=== PATIENT | female | born 1990 | race Caucasian/White ===

== ENCOUNTER 2023-07-06 11:41 | Outpatient (REF) | payer MEDICAID, OTHER, SELFPAY ==
[2023-07-06 13:14] LABS: MANUAL DIFF FLAG NO
[2023-07-06 13:32] LABS: Basophils Percent Auto 0.7 % (0-2); Eosinophils Absolute Auto 0.1 X10*3/uL (0.0-0.4); Eosinophils Percent Auto 2.5 % (0-4); Hematocrit 38.4 % (37.0-47.0); Hemoglobin 12.5 g/dl (12.0-16.0); Imm Gran Abs Auto 0.02 X10*3/uL (0.00-0.03); Imm Gran Pct Auto 0.5 % (0.0-0.4); Lymphocytes Absolute Auto 1.3 X10*3/uL (1.2-4.9); Lymphocytes Percent Auto 29.7 % (20-40); Mean Corpuscular HGB Conc 32.6 g/dl (31.0-35.0); Mean Corpuscular Hemoglobin 29.2 pg (27.0-33.0); Mean Corpuscular Volume 89.7 fL (80.0-98.0); Mean Platelet Volume 9.6 fL (9.4-12.3); Monocytes Absolute Auto 0.3 X10*3/uL (0.1-1.2); Monocytes Percent Auto 7.8 % (2-11); Neutrophils Absolute Auto 2.6 x10*3/uL (2.0-8.3); Neutrophils Percent Auto 58.8 % (45-73); Platelet Count 252 X10*3/uL (160-400); Red Blood Count 4.28 X10*6/uL (4.20-5.50); Red Cell Distribution Width 13.6 % (11.0-16.0); White Blood Count 4.3 X10*3/uL (4.8-10.8)
[2023-07-06 13:46] LABS: Estimated Average Glucose 100 mg/dL; Hemoglobin A1c % 5.1 % (<6.0)
[2023-07-06 13:50] LABS: Alanine Aminotransferase 11 U/L (0-31); Alkaline Phosphatase 68 U/L (39-117); Anion Gap 10 (12-20); Aspartate Amino Transferase 21 U/L (5-31); Bilirubin Total 0.6 mg/dL (0.0-1.0); Blood Urea Nitrogen 12 mg/dL (9-16); Calcium 8.9 mg/dL (8.4-10.2); Carbon Dioxide 24 mmol/L (22-29); Chloride 108 mmol/L (96-108); Cholesterol 145 mg/dL (<200); Estimated Glomerular Filt Rate > 60; Glucose Random 78 mg/dL (60-115); HDL Cholesterol 59 mg/dL (>40); LDL Cholesterol Calculated 81 mg/dL (<100); Sodium 138 mmol/L (135-145); Total Protein 7.2 g/dL (6.5-8.0); Triglycerides 28 mg/dL (<150)
[2023-07-06 13:55] LABS: Syphilis Screen Nonreactive (Nonreactive)
[2023-07-06 14:08] LABS: TSH reflex Free T4 0.82 uIU/mL (0.32-4.0)
[2023-07-06 15:29] LABS: CT PCR NOT DETECTED (Not Detect.); NG PCR NOT DETECTED (Not Detect.)
[2023-07-07 04:05] LABS: HBS Num1 0.17 mIU/mL (0-7.99); HBc Num1 0.16 S/CO (0.00-0.79); HIV AB/AG Nonreactive (Nonreactive); HIV Num 1 0.05 S/CO (0.00-0.99); Hepatitis B Core Antibody Nonreactive (Nonreactive); Hepatitis B Surface Antigen Negative (Negative); ~Hepatitis B Surface Antibody NONREACTIVE (Nonreactive)
[2023-07-07 04:15] LABS: ~HepC Num1 0.15 S/CO (0.00-0.79); ~Hepatitis C Antibody Nonreactive (Nonreactive)
[2023-07-14 05:34] LABS: HPV 16 RNA NOT DETECTED (NOT DETECTED); HPV mRNA E6/E7 rflx Detected (Not Detected)
== END 2023-07-06 11:42 | disposition home or self-care (01) ==
LOC: HO.HHCL 11:41
PROVIDERS: Visit Provider Student in an Organized Health Care Education/Training Program
DX: Z00.00 Encounter for general adult medical examination without abnormal findings (principal); Z12.4 Encounter for screening for malignant neoplasm of cervix; Z11.51 Encounter for screening for human papillomavirus (HPV); Z11.4 Encounter for screening for human immunodeficiency virus [HIV]; Z11.3 Encounter for screening for infections with a predominantly sexual mode of transmission; N60.01 Solitary cyst of right breast
CPT/HCPCS: 0353U; 80053; 80061; 83036; 84443; 85025; 86704; 86706; 86780; 86803; 87340; 87389; 87624; 87625; 88142

== ENCOUNTER 2024-06-28 16:54 | Outpatient (REF) | payer MEDICAID, OTHER, SELFPAY ==
[2024-06-29 23:54] LABS: C. trachomatis RNA TMA NOT DETECTED (NOT DETECTED); N. gonorrhoeae RNA TMA NOT DETECTED (NOT DETECTED); Trichomonas (NAAT) NOT DETECTED (NOT DETECTED)
[2024-07-13 13:12] LABS: Clinical Information NONE GIVEN; Previous Biopsy Date NONE GIVEN; Thin Prep Source CERVIX
[2024-07-13 13:15] LABS: HPV mRNA E6/E7 Not Detected
== END 2024-06-28 16:55 | disposition home or self-care (01) ==
LOC: HO.HHCLNP 16:54
PROVIDERS: Visit Provider Advanced Practice Midwife
DX: R30.0 Dysuria (principal); N93.9 Abnormal uterine and vaginal bleeding, unspecified; Z11.3 Encounter for screening for infections with a predominantly sexual mode of transmission; R82.79 Other abnormal findings on microbiological examination of urine; R87.810 Cervical high risk human papillomavirus (HPV) DNA test positive
CPT/HCPCS: 36415; 87086; 87088; 87186; 87491; 87591; 87624; 87661; 88175

== ENCOUNTER 2024-11-04 09:42 | Outpatient (REF) | payer MEDICAID, SELFPAY ==
--- NOTE | ~2024-11-04 | US_ITS ---
EXAMINATION: MM DIAGNOSTIC DIGITAL BREAST TOMOSYNTHESIS, BILATERAL Alignment Limited right breast ultrasound. CLINICAL INFORMATION: Right breast palpable lump upper outer quadrant. Right medial breast pain. COMPARISON: Mammography: Baseline. TECHNIQUE: Digital breast mammography with tomosynthesis is performed in both the craniocaudal and mediolateral oblique views along with computer-aided detection (CAD). Limited right breast ultrasound. FINDINGS: The breasts are heterogeneously dense, which may obscure small masses (ACR BI-RADS breast composition Category c). BB marker in the upper outer breast without underlying abnormality. There are no significant masses, abnormal calcifications, or other abnormalities. Targeted color Doppler ultrasound in the area of the palpable lump at 11:00 demonstrates a hypoechoic oval circumscribed solid mass measuring 15 x 7 x 17 mm with morphology consistent with a fibroadenoma. No other sonographic abnormality. Targeted ultrasound in the medial right breast area of patient's pain from 7-12 o'clock demonstrates normal fibronodular breast tissue. Results are provided to the patient at time of visit by the technologist. US/US breast RT limited mamm only IMPRESSION: Hypoechoic solid mass at 11:00 on ultrasound. Recommend 6 month follow-up ultrasound for further evaluation of stability. No mammographic or sonographic abnormality to account for the patient's medial right breast pain. Recommend clinical evaluation and follow-up. ASSESSMENT: BI-RADS BI-RADS 3 - Probably benign finding(s) - 6 month follow-up suggested RECOMMENDATION: 6 Month F/U This patient's information was entered into a reminder system with a target due date for their next mammogram. Electronically signed by: Janice Nick DO 11/04/2024 10:55 AM LUNA
== END 2024-11-04 09:43 | disposition home or self-care (01) ==
LOC: HO.MAMMO 09:42
PROVIDERS: PCP Student in an Organized Health Care Education/Training Program; Visit Provider Advanced Practice Midwife
DX: N63.11 Unspecified lump in the right breast, upper outer quadrant (principal); R92.333 Mammographic heterogeneous density, bilateral breasts
CPT/HCPCS: 76642; 77062; 77066

== ENCOUNTER → 2024-11-04 09:45 | Outpatient (BNV) | payer MEDICAID, SELFPAY | PROVIDERS: PCP Student in an Organized Health Care Education/Training Program; Visit Provider Internal Medicine | DX: D24.1 Benign neoplasm of right breast (principal); R92.333 Mammographic heterogeneous density, bilateral breasts | CPT/HCPCS: 76642; 77062; 77066 ==

== ENCOUNTER → 2025-05-09 13:00 | Outpatient (BNV) | payer OTHER, SELFPAY | PROVIDERS: PCP Student in an Organized Health Care Education/Training Program; Visit Provider Internal Medicine | DX: N63.11 Unspecified lump in the right breast, upper outer quadrant (principal) | CPT/HCPCS: 76642 ==

== ENCOUNTER 2025-05-09 13:01 | Outpatient (REF) | payer OTHER, SELFPAY ==
--- NOTE | ~2025-05-09 | US_ITS ---
EXAMINATION: US DIAGNOSTIC ULTRASOUND BREAST, RIGHT CLINICAL INFORMATION: X month follow-up for hypoechoic oval circumscribed solid mass at 11:00 2 cm from the nipple in the right breast.. COMPARISON: Comparison is made with relevant prior imaging. TECHNIQUE: Ultrasound of the breast is performed with real-time velazquez scale imaging and color Doppler. FINDINGS: Targeted color Doppler ultrasound demonstrates at 11:00 2 cm from the nipple a hypoechoic oval circumscribed parallel solid mass measuring 16 x 8 x 15 mm not significantly changed in size or morphology from prior ultrasound 6 months ago previously measuring 17 x 15 x 7 mm. Results are discussed with the patient at time of visit. US/US breast RT limited mamm only IMPRESSION: Hypoechoic oval circumscribed solid mass at 11:00 2 cm from the nipple in the right breast. 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 This mass is amenable to ultrasound guided core needle biopsy if clinically indicated. This is probably benign and six-month follow-up ultrasound is recommended for further evaluation of stability. ASSESSMENT: BI-RADS 3: Probably Benign RECOMMENDATION: Diagnostic mammography in 6 months. This patient's information was entered into a reminder system with a target due date for their next mammogram. Electronically signed by: Janice Nick DO 05/09/2025 01:44 PM EDT
--- OUTSIDE RECORDS SUMMARY | 2025-05-09 14:18 | XMS_ITS | Clinical Summary ---
Author Organization [employer] Address [address] [place] [address] [address] [place] [address] Care Team Providers Care Java User Interface Developer Name Role Phone Kathy Edwards MD Primary Care Pro vider Allergies No known active allergies Medications Multiple Vitamin (multivitamin) tablet Take 1 tablet by mouth in the morning. Active Active Problems Problem Noted Date Diagnosed Date Health care maintenance 06/23/2023 Overweight 06/23/2023 Breast mass, right 06/23/2023 Encounters Date Type Department Care Team Description 05/09/2025 Orders Only [facility] [address], [place] [phone] Kathy Edwards MD 04/10/2025 Telephone [facility] [address], [place] [phone] Ashley Aguilar CNM June Recall 04/10/2025 Telephone [facility] [address], [place] [phone] Kathy Edwards MD recall from Last 3 Months Immunizations Immunization Administration Dates Next Due HPV 9-Valent 08/05/2023,07/06/2023 Hep B, adult 07/28/2023 Influenza injectable quadriv alent preservative free 07/28/2023,12/14/2018,07/26/2017 Tdap 12/14/2018,05/14/2017 Family History Medical History Relation Name Comments HTN Maternal Grandfather Relation Name Status Comments Maternal Grandfather Social History Tobacco Use Types Packs/Day Years Used Date Smoking Tobacco: Never Passive Smoke Exposure: Never Smokeless Tobacco: Never Tobacco Cessation:Counseling Given: Not Answered Alcohol Use Standard Drinks/Week Comments Never 0 (1 standard drink = 0.6 oz pur e alcohol) Depression Answer Date Recorded Patient Health Questionnaire-9 Score 0 06/22/2023 Housing Stability Answer Date Recorded What is your housing situation today? I have zacarias rios 08/12/[address] you li ve. Do you have problems with any of the following? None of the above 08/12/2023 Food Insecurity Answer Date Recorded Within the past 12 months, y ou worried that your food would run out before you got money to buy more: Never True 08/12/2023 Within the past 12 months,th e food you bought just didn't last and you didn't have enough money to get more: Never True Transportation Answer Date Recorded In the past 12 months, has l ack of transportation kept you from medical appts, meetings, work or from getting things needed for daily living? No 08/12/2023 Utilities Answer Date Recorded In the past 12 months, has t he electric, gas, oil or water company threatened to shut off services in your home? No 08/12/2023 Depression Answer Date Recorded Patient Health Questionnaire-2 Score 0 06/22/2023 Comments No Sex and Gender Information Value Date Recorded Sex Assigned at Female 08/25/2022 10:31 AM EDT Legal Sex Female 10:31 AM EDT Gender Identity Female 08/25/2022 10:31 AM EDT Sexual Orientation Straight 06/22/2023 1: 52 PM EDT Last Filed Vital Signs Vital Sign Reading Time Taken Comments Blood Pressure 126/72 06/28/2024 10:11 AM EDT Pulse 100 06/28/2024 10:11 AM EDT Temperature 36.9 C (98.5 F) 06/28/2024 10:11 AM EDT Respiratory Rate 20 06/28/2024 10:11 AM EDT Oxygen Saturation 99% 08/05/2023 9:16 AM EDT Inhaled Oxygen Concentration - - Weight 75.4 kg (166 lb 2 oz) 06/28/2024 10:11 AM EDT Height 165.1 cm (5' 5 ) 06/28/2024 10:11 AM EDT Body Mass Index 27.64 06/28/2024 10:11 AM EDT Plan of Treatment Health Maintenance Due Date Last Done Comments Disability Screening 1990 Alcohol/Substance Use Screening 2004 Hepatitis B Vaccines (2 of 3 - 19+ 3-dose series) 08/25/2023 07/28/2023 HPV Vaccines (3 - 3-dose series) 01/04/2024 08/05/2023, 07/06/2023 Depression Screening 06/22/2024 06/22/2023, 06/22/2023 SDOH Screening 06/22/2024 06/22/2023 COVID-19 Vaccine (1 - 2023-2 5 season) 2024 Diagnostic Breast Imaging 05/04/20252024, 11/04/2024, 11/04/2024 Influenza Vaccine (#1) 2025 , 12/14/2018, 07/26/2017 Cervical Cancer Screening 06/28/2025 Family Planning (PISQ) 06/28/2025 06/28/2024 HPV/Cotest 06/28/2025 06/28/2024, 07/06/2023 Pap Smear 06/28/2025 06/28/2024, 07/06/2023 Tobacco Screening 06/28/2025 06/28/2024 DTaP/Tdap/Td Vaccines (3 - T d or Tdap) 12/14/2028 12/14/2018, 05/14/2017 Zoster Vaccines (1 of 2) 01/02/2042 RSV Patients and Patients Aged 60 years or older (1 - 1-dose 75+ series) 01/02/2067 HIV Screening Completed 07/06/2023 Hepatitis C Screening Completed 07/06/2023 HIB Vaccines Aged Out No longer eligi ble based on patient's age to complete this topic Hepatitis A Vaccines Aged Out No long er eligible based on patient's age to complete this topic IPV Vaccines Aged Out No longer eligi ble based on patient's age to complete this topic Meningococcal B Vaccine Aged Out No l onger eligible based on patient's age to complete this topic Meningococcal Vaccine Aged Out No gatito dylan eligible based on patient's age to complete this topic Pneumococcal Vaccine: Pediatrics (0 to 5 Years) and At-Risk Patients (6 to 49) Years Aged Out No longer eligible b ased on patient's age to complete this topic RSV under 20 months Aged Out No longe r eligible based on patient's age to complete this topic Rotavirus Vaccines Aged Out No longer eligible based on patient's age to complete this topic Procedures Procedure Name Priority Date/Time Associated Diagnosis Comments BI US BREAST LIMITED RIGHT Routine 05/09/2025 1:10 PM EDT THINPREP IMAGING PAP AND HPV MRNA E6/E7 Routine 06/28/2024 10:27 AM EDT Breast cyst, right HEPATITIS C AB W/REFL TO HCV RNA, QN, PCR Routine 07/06/2023 11:49 AM EDT Health care maintenance HIV ANTIBODY/ANTIGEN ([place] D[facility]) Routine 07/06/2023 11:49 AM EDT Breast cyst, right from Last 3 Months or Most Recently Relevant to Health Maintenance Results * BI US Breast Limited Right (05/09/2025 1:10 PM EDT) Anatomical Region Laterality Modality Breast Right Ultrasound 05/09/2025 1:10 PM EDT Narrative 05/09/2025 1:47 PM EDT [facility] [address] [place] [address] Ultrasound Report Signed Patient: Deshawn Escobar MR#: [id number] 4 : 1990 Acct:[id number] Age/Sex: 35 / F ADM Date: 05/09/25 Loc: HO.MAMMO Attending Dr: Kathy Alejandro MD Ordering Physician: Kathy Edwards MD Date of Service: 05/09/25 Procedure(s): US breast RT limited mamm only Accession Number(s): [id number] cc: Kathy Edwards MD EXAMINATION: US DIAGNOSTIC ULTRASOUND BREAST, RIGHT CLINICAL INFORMATION: X month follow-up for hypoechoic oval circumscribed solid mass at 11:00 2 cm from the nipple in the right breast.. COMPARISON: Comparison is made with relevant prior imaging. TECHNIQUE: Ultrasound of the breast is performed with real-time velazquez scale imaging and color Doppler. FINDINGS: Targeted color Doppler ultrasound demonstrates at 11:00 2 cm from the nipple a hypoechoic oval circumscribed parallel solid mass measuring 16 x 8 x 15 mm not significantly changed in size or morphology from prior ultrasound 6 months ago previously measuring 17 x 15 x 7 mm. Results are discussed with the patient at time of visit. US/US breast RT limited mamm only IMPRESSION: Hypoechoic oval circumscribed solid mass at 11:00 2 cm from the nipple in the right breast. 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 This mass is amenable to ultrasound guided core needle biopsy if clinically indicated. This is probably benign and six-month follow-up ultrasound is recommended for further evaluation of stability. ASSESSMENT: BI-RADS 3: Probably Benign RECOMMENDATION: Diagnostic mammography in 6 months. This patient's information was entered into a reminder system with a target due date for their next mammogram. Electronically signed by: Janice Nick DO 05/09/2025 01:44 PM EDT RP Dictated By: Janice Nick DO Signed By: <Electronically signed by Janice Nick DO in OV> 05/09/25 1344 DD/ 1310 TD/TT: 05/09/25 1333 Arc Air Operator: Procedure Note Donotuseinterpreter, Image - 05/09/20[facility] [address] [place] [address] Ultrasound Report Signed Patient: Hermes Escobar#: [id number] 4 : 1990Acct:[id number] Age/Sex: 35 / FADM Date: 05/09/25 Loc: HO.MAMMO Attending Dr: Kathy Alejandro MD Ordering Physician: Kathy Edwards MD Date of Service: 05/09/25 Procedure(s): US breast RT limited mamm only Accession Number(s): [id number] cc: Kathy Edwards MD EXAMINATION: US DIAGNOSTIC ULTRASOUND BREAST, RIGHT CLINICAL INFORMATION: X month follow-up for hypoechoic oval circumscribed solid mass at 11:00 2 cm from the nipple in the right breast.. COMPARISON: Comparison is made with relevant prior imaging. TECHNIQUE: Ultrasound of the breast is performed with real-time velazquez scale imaging and color Doppler. FINDINGS: Targeted color Doppler ultrasound demonstrates at 11:00 2 cm from the nipple a hypoechoic oval circumscribed parallel solid mass measuring 16 x 8 x 15 mm not significantly changed in size or morphology from prior ultrasound 6 months ago previously measuring 17 x 15 x 7 mm. Results are discussed with the patient at time of visit. US/US breast RT limited mamm only IMPRESSION: Hypoechoic oval circumscribed solid mass at 11:00 2 cm from the nipple in the right breast. 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 This mass is amenable to ultrasound guided core needle biopsy if clinically indicated. This is probably benign and six-month follow-up ultrasound is recommended for further evaluation of stability. ASSESSMENT: BI-RADS 3: Probably Benign RECOMMENDATION: Diagnostic mammography in 6 months. This patient's information was entered into a reminder system with a target due date for their next mammogram. Electronically signed by: Janice Nick DO 05/09/2025 01:44 PM EDT RP Dictated By: Janice Nick DO Signed By: <Electronically signed by Janice Nick DO in OV> 05/09/25 1344 DD/ 1310 TD/TT: 05/09/25 1333 Arc Air Operator: Kathy Alejandro MD IM US PROCEDURES Final Result * ThinPrep Imaging Pap and HPV mRNA E6/E7 (06/28/2024 10:27 AM EDT) HPV nRNA E6/E7 Not Detected [facility] Comment:REFERENCE RANGE: Not DetectedMethodology: Lathe Scalper Operator-Mediated AmplificationThis assay detects E6/E7 viral messenger RNA (mRNA) from 14high- risk HPV types(16,18,31,33,35,39,45,51,52,56,58,59,66,68).Cervical sources are required for HPV testing.If a vaginal source from a patient who has had atotal hysterectomy with removal of cervix wassubmitted, please contact the testing laboratoryfor alternative testing options.For additional information, please refer [email or web address]/[email or web address](This link if provided for information/educational purposes only.)THIS TEST PERFORMED AT:[employer] [id number] [place] [phone] DIRECTOR: NOEL MALDONADO MD SOURCE: CERVIX [facility] Report Status: [facility] Clinical Information: NONE GIVEN [facility] LMP: NONE GIVEN [facility] Prev. PAP: NONE GIVEN [facility] Prev. BX: NONE GIVEN [facility] Statement Of Adequacy: SEE NOTE [facility] Comment:Satisfactory for bernadette luation.Endocervical/transformation zone componentpresent. General Categorization: [facility] Interpretation/Result: SEE NOTE [facility] Comment:Cytology Results: Ne gative for intraepitheliallesion or malignancy. Cytology Comment SEE NOTE [facility] Comment:This Pap test has be en evaluated with computerassisted technology. School Bus Operator: SEE NOTE [facility] Comment:KR, CT(ASCP)CT scree donovan location: [place] [address] Review School Bus Operator: [facility] Pathologist [facility] PAP Infection [facility] See Note SEE NOTE [facility] Comment:EXPLANATORY NOTE:The Pap is a screening test for cervical cancer. It isnot a diagnostic test and is subject to false negativeand false positive results. It is most reliable when asatisfactory sample, regularly obtained, is submittedwith relevant clinical findings and history, and whenthe Pap result is evaluated along with historic andcurrent clinical information.THIS TEST PERFORMED AT:[employer] [id number] [place] [address] [phone] DIRECTOR: NOEL MALDONADO MD 06/28/2024 10:2 7 AM EDT 06/28/2024 4:56 PM EDT Narrative [facility] - 07/13/2024 1:15 PM EDT SEE SCANNED RESULTS IN EMR Ashley Aguilar CNM LAB PATHOLOGY ORDERABLES Final Result Performing Organization Address [facility] Co de Phone Number [facility] [address] [place] [address] [phone] HIV Ab/Ag ([facility]) (07/06/2023 11:49 AM EDT) HIV AB/AG Nonreactive Nonreactive [facility] Comment:HIV-1 p24 Ag and/or HIV-1/HIV-2 Ab not detected.A test result that is nonreactive does not exclude thepossibility of exposure to or infection with HIV-1 and/orHIV-2. Nonreactive results in this assay for individualswith prior exposure to HIV-1 and/or HIV-2 may be due toantigen and antibody levels that are below the limit ofdetection of this assay.The [employer] HIV Ag/Ab Combo assay result andsupplemental assay results should be interpreted inconjunction with the patient's clinical presentation,history and other laboratory results. If the results areinconsistent with clinical evidence, additional testing issuggested to confirm the result. 07/06/2023 11:4 9 AM EDT 07/06/2023 1:09 PM EDT us Kathy Alejandro MD LAB BLOOD ORDERAB LES Final Result Performing Organization Address [facility] Co de Phone Number [facility] [address] [place] [address] [phone] * Hepatitis C Antibody with Reflex to HCV, RNA, Quantitative, Real-Time PCR (07/06/2023 11:49 AM EDT) Hepatitis C Antibody Nonreactive Nonreactive [facility] Comment:Antibodies to HCV no t detected; does not exclude early acuteHCV infection. Blood Venous blood specimen / Unknown 07/06/2023 11:49 AM EDT 07/06/2023 1:09 PM EDT Kathy Alejandro MD LAB BLOOD ORDERAB LES Final Result [facility] [address] [place] [address] [phone] from Last 3 Months or Most Recently Relevant to Health Maintenance Insurance [employer] Care Teams Java User Interface Developer Relationship Specialty Start Date End Date Kathy Edwards MD [address] [place] [address] PCP - General Internal Medicine 06/22/23
== END 2025-05-09 13:02 | disposition home or self-care (01) ==
LOC: HO.MAMMO 13:01
PROVIDERS: PCP Student in an Organized Health Care Education/Training Program; Visit Provider Student in an Organized Health Care Education/Training Program
DX: N63.11 Unspecified lump in the right breast, upper outer quadrant (principal)
CPT/HCPCS: 76642

== ENCOUNTER 2025-08-03 15:11 | Outpatient (REF) | payer MEDICAID, SELFPAY ==
[2025-08-03 16:35] LABS: Hematocrit 38.1 % (37.0-47.0); Hemoglobin 12.4 g/dl (12.0-16.0); Mean Corpuscular HGB Conc 32.5 g/dl (31.0-35.0); Mean Corpuscular Hemoglobin 29.9 pg (27.0-33.0); Mean Corpuscular Volume 91.8 fL (80.0-98.0); NRBC Abs Auto 0.000 X10*3/uL (0.0-0.012); NRBC Pct Auto 0.0 /100WBC (0.0-0.2); Platelet Count 297 X10*3/uL (160-400); Red Blood Count 4.15 X10*6/uL (4.20-5.50); White Blood Count 5.6 X10*3/uL (4.8-10.8)
[2025-08-04 03:51] LABS: CT PCR Urine NOT DETECTED (Not Detect.); NG PCR Urine NOT DETECTED (Not Detect.)
[2025-08-04 14:06] LABS: Ferritin 18 ng/mL (10-122)
[2025-08-04 14:07] LABS: Iron 65 mcg/dL (30-160); Percent Iron Saturation 19 % (15-50); Total Iron Binding Capacity 334 mcg/dL (228-428); Unsaturated Iron Binding 269 ug/dL
== END 2025-08-03 15:12 | disposition home or self-care (01) ==
LOC: HO.HHCL 15:11
PROVIDERS: PCP Student in an Organized Health Care Education/Training Program; Visit Provider Advanced Practice Midwife
DX: Z20.2 Contact with and (suspected) exposure to infections with a predominantly sexual mode of transmission (principal); N93.9 Abnormal uterine and vaginal bleeding, unspecified
CPT/HCPCS: 82728; 83540; 84443; 85027; 87491; 87591; 87661